=== PATIENT | female | born 1930 | race Caucasian/White ===

== ENCOUNTER 2017-10-11 08:57 | Inpatient (IN) | payer MEDICARE, OTHER ==
[2017-10-11 09:51] LABS: #Eosinphils 0.4 thou/uL (0.0-0.7); #Lymphocytes 1.4 thou/uL (1.20-3.40); #Monocytes 0.6 thou/uL (0.11-0.59); %Basophils 0.3 % (0.0-1.0); %Eosinophils 4.6 % (0.0-10.0); %Lymphocytes 14.8 % (21.0-51.0); %Monocytes 6.4 % (0.0-10.0); %Neutrophils 73.8 % (42.0-75.0); Hemoglobin 7.5 g/dL (12.0-16.0); Mean Corpuscular HGB CONC 29.5 g/dL (32.0-36.0); Mean Corpuscular Hemoglobin 20.1 pg (27.0-31.0); Mean Corpuscular Volume 68.2 fl (81.0-99.0); Mean Platelet Volume 7.6 fL (7.4-10.4); Platelet Count 383 thou/uL (130-400); RBC Distribution Width 15.1 % (11.5-14.5); Red Blood Cell (RBC) Count 3.73 mill/uL (4.20-5.40); White Blood Cell (WBC) Count 9.5 thou/uL (4.8-10.8)
[2017-10-11 09:58] LABS: ALT (SGPT) 16 U/L (8-55); AST (SGOT) 17 U/L (5-34); Albumin 3.8 g/dL (3.4-4.8); Alkaline Phosphatase 71 U/L (40-150); Anion Gap 9 mmol/L (10-20); BUN (Urea Nitrogen) 21 mg/dL (9.8-20.1); Bilirubin, Total 0.3 mg/dL (0.2-1.2); Calc. Creatinine Clearance 0 mL/min (70-130); Calcium 9.2 mg/dL (7.8-10.44); Carbon Dioxide 26 mmol/L (23-31); Chloride 107 mmol/L (98-107); Estimated GFR-MDRD 67; Globulin 2.8 g/dL (2.4-3.5); Glucose 134 mg/dL (83-110); Potassium 3.7 mmol/L (3.5-5.1); Protein, Total 6.6 g/dL (6.0-8.3); Sodium 138 mmol/L (136-145)
[2017-10-11 10:08] LABS: Anisocytosis SLIGHT = 6-15 cells (100X) (0-5/hpf); Burr Cells SLIGHT = 2-5 cells (100X) (0-1/hpf); Elliptocytes SLIGHT = 2-5 cells (100X) (0-1/hpf); PLT Morphology Comment Appears Adequate; Polychromasia SLIGHT = 2-3 cells (100X) (0-2/hpf)
[2017-10-11 10:13] LABS: CKMB 3.2 ng/mL (0-6.6); Troponin I Less than 0.010 ng/mL (< 0.028)
[2017-10-11 10:15] LABS: INR-International Normal Ratio 1.1; PTT 25.9 SEC (22.9-36.1); Prothrombin Time 14.1 SEC (12.0-14.7)
[2017-10-11] MEDS ORDERED: Morphine 4 MG/ML VIAL ONE ×2 (10:19→13:30)
[2017-10-11 11:06] LABS: Bilirubin Negative (Negative); Blood, Urine Negative (Negative); Glucose, Urine (Dipstick) Negative (Negative); Leukocyte Negative (Negative); Nitrite Negative (Negative); Protein, Urine (Dipstick) Negative (Neg-Trace); Urobilinogen 0.2 mg/dL (0.2-1.0)
[2017-10-11 11:07] LABS: Clarity Clear (Clear)
--- NOTE | 2017-10-11 11:47 | RAD ---
CHEST 1 VIEW: HISTORY: Fall. COMPARISON: Chest radiograph 01/12/17. FINDINGS: There is a focal area of what appears to be scarring in the right upper lobe, similar to the comparis on examination. Old right-sided rib fractures. Lungs are without focal airspace consolidation, pneu mothorax, or effusion. IMPRESSION: Chronic changes. No acute intrathoracic abnormality. POS: [facility]
--- NOTE | 2017-10-11 12:05 | RAD ---
PELVIS 1 VIEW: History Fall. COMPARISON: Pelvis radiograph 2017. FINDINGS: Intertrochanteric fracture of the right femur with mild varus angulation and foreshortening. Degenerative changes are noted of the pubic symphysis. The obturator rings appear to be intact. IMPRESSION: Intertrochanteric fracture of the right femur. Mild foreshortening and varus angulation. POS: [facility]
--- NOTE | 2017-10-11 12:06 | RAD ---
RIGHT FEMUR 2 VIEWS: HISTORY: Fall. COMPARISON: Same day. FINDINGS: There is foreshortening of the intertrochanteric fracture of the right femur with varus angulation an d medial displacement. IMPRESSION: Foreshortened and medially displaced varus angulated intertrochanteric fracture right femur. POS: [facility]
--- NOTE | 2017-10-11 12:07 | CT ---
CT OF THE HEAD NONCONTRAST: INDICATION: Fall with head injury. FINDINGS: There is no ventriculomegaly, mass effect, midline shift, or acute intracranial hemorrhage. There is moderate global atrophy related to patient's age. Moderate chronic microvascular ischemic disease i s present. IMPRESSION: 1. No acute intracranial hemorrhage or mass effect. 2. Age-related parenchymal volume loss and chronic ischemic disease. POS: [facility]
--- NOTE | 2017-10-11 12:09 | RAD ---
RIGHT HIP 2 VIEWS: HISTORY: Fall. COMPARISON: Hip radiograph 2013. FINDINGS: Intertrochanteric fracture right femur with foreshortening and varus angulation. IMPRESSION: Foreshortened varus angulated impacted intertrochanteric fracture right femur. POS: [facility]
--- NOTE | 2017-10-11 12:12 | CT ---
CT CERVICAL SPINE WITHOUT CONTRAST: HISTORY: Fall. COMPARISON: CT cervical spine 01/13/17. FINDINGS: No acute fracture or malalignment. Moderate degenerative changes throughout the cervical spine inclu ding facet arthrosis and degenerative disk space narrowing. Skull base is intact. The odontoid process is intact as well as the occipital condyles. There is intralobular septal thickening of the lung apices. Paraspinal soft tissues appear unremarka ble. IMPRESSION: No acute fracture or malalignment of cervical spine. POS: [facility]
[2017-10-11] MEDS ORDERED: Dextrose 50% Abboject 50 ML SYRINGE SLOW IVP PRN (12:23)
[2017-10-11] MEDS ORDERED: hydrALAZINE 20 MG/ML VIAL SLOW IVP PRN (12:23)
[2017-10-11] MEDS ORDERED: Dextrose 5% in Water 1,000 ML IV PRN (12:23)
[2017-10-11] MEDS ORDERED: Ondansetron HCl/PF 4 MG/2 ML Vial IVP PRN (12:23)
[2017-10-11] MEDS ORDERED: Ondansetron ODT 4 MG TAB PO PRN (12:23)
[2017-10-11] MEDS ORDERED: Morphine 4 MG/ML VIAL SLOW IVP PRN (12:38)
[2017-10-11 13:15] LABS: Phosphorus 3.3 mg/dL (2.3-4.7)
--- NOTE | 2017-10-11 13:38 | HP ---
DATE OF ADMISSION: 10/11/2017 ADMITTING PHYSICIAN: Dr. Shoemaker. CONSULTING PHYSICIAN: Dr. Harrison. CHIEF COMPLAINT: Right hip fracture. HISTORY OF PRESENT ILLNESS: Mrs. De Jesus is a resident of [facility] who had an unwitnesse d fall today. The patient is unable to recall any details of the accident, so details have been obta ined for record review. Per ER records, fall was from ground level. Unclear if loss of consciousnes s. She was brought to the [place] ED by EMS where she was evaluated and found to have a right int ertrochanteric femur fracture with foreshortening and varus angulation. She had a negative head CT. Her cervical spine CT was negative. Dr. Harrison in Orthopedic Surgery was consulted and Trauma Serv ice was asked to admit. PAST MEDICAL HISTORY: Per chart review, the patient has a past medical history significant for intra cranial hemorrhage in 2017. Patient also has a history of dementia, history of previous falls and ob structive sleep apnea. The patient reports she is not on CPAP at home. Records reviewed also reveal ed the patient has history of glaucoma, Meniere's disease, hypertension, and asthma. PAST SURGICAL HISTORY: Per records review, patient has history of appendectomy, hysterectomy, and le ft mastectomy. SOCIAL HISTORY: The patient lives at [facility]. This was obtained by records review. The patient does not recall where she lives. She denies smoking, drugs or alcohol use. FAMILY HISTORY: Patient is unable to report family history. ALLERGIES: Per records review, patient has a history of IODINE allergy. REVIEW OF SYSTEMS: A 10 point review of systems was obtained at bedside and was negative except as m entioned in the HPI. PHYSICAL EXAMINATION: VITAL SIGNS: BP 156/69, heart rate 87, respirations 16, O2 sats 97% on 2 liters. GENERAL APPEARANCE: Patient is an elderly obese adult female. She does appear to be in moderate trinity unt of distress. HEENT: She is normocephalic and atraumatic. Eyes, PERRLA, EOMI. Ears atraumatic. Nose: Nares pat ent. Mouth: Oropharynx is pink and moist. She is edentulous. NECK: Trachea is midline. She has no cervical spine tenderness. RESPIRATORY: Breath sounds are clear to auscultation bilaterally with normal effort. CARDIOVASCULAR: She has a mostly regular rate and rhythm. She does have occasional premature beats. Her distal pulses are 2+ bilaterally. ABDOMEN: Soft, obese, nontender throughout. She has positive bowel sounds. EXTREMITIES: She is neurovascularly intact x4. EXTREMITIES: Her right leg is externally rotated and foreshortened. She has no contusion or ecchymo sis over her right hip. She has several scars from previous surgeries, one in her right lower quadra nt, another on her upper left chest and another on her anterior right shoulder. LABORATORY DATA: Hematology significant for hemoglobin of 7.5, hematocrit 25.4. Chemistry significa nt for potassium 3.7, BUN 21 and creatinine 0.81. Cardiac profile; CK-MB 3.2, troponin less than 0.0 10. Coag panel: PT 14.1, INR 1.1, and PTT 25.9. Urinalysis negative for UTI. Fecal occult blood n egative. IMAGING DATA: 1. CT cervical spine without contrast: A. No acute fracture or malalignment of cervical spine. 2. X-ray right hip: A. Foreshortened varus angulated impacted intertrochanteric fracture of the right femur. 3. X-ray of the femur, right two view: A. Foreshortened and medially displaced varus angulated intertrochanteric fracture of the right femu r. 5. X-ray of the pelvis: A. Intertrochanteric fracture of the right femur. Allow for shortening and varus angulation. 6. Chest x-ray: A. Chronic changes. No acute intrathoracic abnormality. 7. CT of the brain without contrast: A. No acute intracranial hemorrhage or mass effect. B. Age related parenchymal volume loss and chronic ischemic disease. ASSESSMENT AND PLAN: 1. Displaced right intertrochanteric femur fracture. 2. Fall from ground level, unwitnessed. 3. Acute traumatic pain. 4. Anemia, hemoglobin 7.5. 5. History of dementia, present on admission. 6. History of asthma, present on admission. 7. History of glaucoma, present on admission. 8. History of Meniere's disease, present on admission. 9. History of hypertension, present on admission. PLAN: 1. Admit to the surgical floor. 2. N.p.o. after midnight for planned hip surgery in the morning. Patient on schedule for 8:[address] Harrison. 3. Pain control optimization. The patient will be put on p.o. Tylenol until tonight when she will b e switched off her medications, 50 mg of Toradol q.6 hours. Morphine for breakthrough severe pain. 4. Transfuse 2 units packed red blood cells today. 5. Patient will need a rehab screen, PT and OT postoperatively for mobilization. 6. We will initiate gastritis and mechanical deep venous thrombosis prophylaxis. We will begin chem ical DVT prophylaxis when okay per orthopedic recommendations. This patient was seen in the ER and discussed with Dr. Shoemaker who agrees with the assessment and az n.
[2017-10-11] MEDS: Acetaminophen 500 MG TAB PO SCH ×2 (18:04)
[2017-10-11] MEDS: Ketorolac Tromethamine 30 MG/ML VIAL IVP SCH (18:05)
[2017-10-11] MEDS: Morphine 4 MG/ML VIAL SLOW IVP PRN (18:55)
[2017-10-11] MEDS: Famotidine/PF 20 mg/2ml Vial SLOW IVP SCH (21:28)
[2017-10-11] MEDS: Famotidine 20 MG TAB PO SCH (22:47)
[2017-10-12] MEDS: Acetaminophen 500 MG TAB PO SCH (01:07)
[2017-10-12] MEDS: Acetaminophen 1,000 MG in Premix Bag 1 BAG IVPB SCH ×3 (01:08→12:46)
[2017-10-12] MEDS: Ketorolac Tromethamine 30 MG/ML VIAL IVP SCH ×2 (01:08→05:27)
[2017-10-12] MEDS: Morphine 4 MG/ML VIAL SLOW IVP PRN ×2 (02:12→06:01)
[2017-10-12] MEDS: Sodium Chloride 0.9% 1,000 ML IV SCH ×2 (02:24→15:42)
[2017-10-12 05:52] LABS: #Eosinphils 0.2 thou/uL (0.0-0.7); #Lymphocytes 1.3 thou/uL (1.20-3.40); #Neutrophils 6.8 thou/uL (1.40-6.50); %Basophils 0.4 % (0.0-1.0); %Eosinophils 2.3 % (0.0-10.0); %Lymphocytes 13.9 % (21.0-51.0); %Neutrophils 72.5 % (42.0-75.0); Hemoglobin 8.9 g/dL (12.0-16.0); Mean Corpuscular HGB CONC 31.2 g/dL (32.0-36.0); Mean Corpuscular Hemoglobin 22.9 pg (27.0-31.0); Mean Corpuscular Volume 73.4 fl (81.0-99.0); Mean Platelet Volume 7.8 fL (7.4-10.4); Platelet Count 303 thou/uL (130-400); RBC Distribution Width 17.7 % (11.5-14.5); Red Blood Cell (RBC) Count 3.89 mill/uL (4.20-5.40); White Blood Cell (WBC) Count 9.3 thou/uL (4.8-10.8)
[2017-10-12 06:15] LABS: Anion Gap 8 mmol/L (10-20); BUN (Urea Nitrogen) 22 mg/dL (9.8-20.1); Calc. Creatinine Clearance 0 mL/min (70-130); Calcium 9.3 mg/dL (7.8-10.44); Carbon Dioxide 28 mmol/L (23-31); Chloride 107 mmol/L (98-107); Estimated GFR-MDRD 80; Glucose 111 mg/dL (83-110); Sodium 140 mmol/L (136-145)
[2017-10-12 07:02] LABS: Magnesium 1.9 mg/dL (1.6-2.6)
[2017-10-12] MEDS ORDERED: Neomycin-Polymyxin 1 ML AMP ONE (07:22)
[2017-10-12] MEDS ORDERED: ADMIXTURE FEE IVPB SCH (07:30)
[2017-10-12] MEDS ORDERED: MAGNESIUM SULFATE IVPB SCH (07:30)
[2017-10-12] MEDS ORDERED: POTASSIUM CHLORIDE IVPB SCH (07:30)
[2017-10-12] MEDS ORDERED: [UNRECOGNIZED DRUG - OTHER] IVPB SCH (07:30)
--- NOTE | 2017-10-12 07:41 | PRG ---
DATE OF SERVICE: 10/12/2017 SUBJECTIVE: Ms. De Jesus is very confused and has no recollection of conversations yesterday in regards to her hip. Please see Trino Salgado PA-C, H&P for dull details. Patient has intertrochanteric fracture. Dr. Harrison to perform ORIF today followed by rehabilitation . She is hemodynamically stable and ready for surgery.
[2017-10-12] MEDS ORDERED: CEFAZOLIN/Water 2 GM/20 ML SYRINGE ONE (08:06)
--- NOTE | 2017-10-12 09:06 | CON ---
DATE OF CONSULTATION: 10/11/2017 HISTORY OF PRESENT ILLNESS: Ms. De Jesus is an 86-year-old female who lives at [facility]. She had an unwitnessed fall on the date of admission. The patient has dementia and was unable to gi ve much history. She was brought to the emergency room and x-rays revealed a severely comminuted int ertrochanteric fracture of the right hip. The patient had a CT scan of her head, which was negative. CT scan of cervical spine was negative. PAST MEDICAL HISTORY: Dementia, sleep apnea, glaucoma, Meniere's disease, hypertension, and asthma. PAST SURGICAL HISTORY: Appendectomy, hysterectomy, and left mastectomy. ALLERGIES: IODINE. PHYSICAL EXAMINATION: GENERAL: Patient is a pleasant female. She is cooperative with the examination. HEENT: Unremarkable for age. Cranial nerves II-XII are grossly intact. NECK: Has mildly limited range of motion without pain. Thoracic and lumbar spine are nontender to p alpation. LUNGS: Clear bilaterally. HEART: Regular rate and rhythm. ABDOMEN: Soft, nontender, bowel sounds positive. GENITOURINARY: Not done. EXTREMITIES: The patient is able to move both upper extremities and the left lower extremity without pain. No attempts were made at movement of the right lower extremity. It is shortened and external ly rotated. The patient has good peripheral pulses. She is able to flex and extend the right ankle and her toes well. Has good sensation. IMAGING: X-rays of the right hip shows a severely comminuted intertrochanteric fracture of the right hip. No significant arthritic changes in the hip joint. LABORATORY DATA: Shows hemoglobin 7.5, hematocrit 25.4. IMPRESSION: 1. Severely comminuted right intertrochanteric fracture of the right femur. 2. Anemia. 3. History of dementia. 4. Asthma. 5. Glaucoma. 6. Meniere's disease. 7. Hypertension. PLAN: The patient will be given 2 units of packed red blood cells. She will be checked out medicall y. The right proximal femur will require open reduction and internal fixation. Planned on using a t rochanteric fixation nail. Potential risks with the condition of surgery include but are not limited to infection, bleeding, pain, damage to blood vessels or nerves, nonunion, malunion. The patient ma y require additional surgery, DVT and PE formation. We will proceed with the surgery tomorrow.
[2017-10-12] MEDS ORDERED: Ondansetron HCl/PF 4 MG/2 ML Vial IVP PRN ×2 (09:17→09:45)
[2017-10-12] MEDS ORDERED: Promethazine HCl 25 MG/ML VIAL IM PRN (09:17)
[2017-10-12] MEDS ORDERED: Promethazine HCl 25 MG/ML VIAL SLOW IVP PRN (09:17)
[2017-10-12] MEDS ORDERED: Acetaminophen 500 MG TAB PO PRN (09:44)
[2017-10-12] MEDS ORDERED: Bisacodyl 10 MG SUPP PR PRN (09:45)
[2017-10-12] MEDS ORDERED: Ondansetron ODT 4 MG TAB PO PRN (09:45)
[2017-10-12] MEDS ORDERED: Fleet Enema 133 ML BOT PR PRN (09:45)
[2017-10-12] MEDS ORDERED: Cepastat Lozenges 1 LOZ PO PRN (09:45)
[2017-10-12] MEDS ORDERED: Milk Of Magnesia 30 ML UDCUP PO PRN (09:45)
--- NOTE | 2017-10-12 10:06 | OP ---
DATE OF PROCEDURE: 10/12/2017 PREOPERATIVE DIAGNOSIS: Comminuted intertrochanteric fracture of the right hip. POSTOPERATIVE DIAGNOSIS: Comminuted intertrochanteric fracture of the right hip. PROCEDURE: Open reduction and internal fixation of comminuted intertrochanteric fracture of the righ t hip utilizing a trochanteric fixation nail. SURGEON: Yuriy Harrison M.D. ANESTHESIA: General. TECHNIQUE: The patient was given preoperative IV antibiotics, taken to the operating room and placed in supine position. Satisfactory general anesthesia was performed. The patient was then placed on the fracture table. All bony prominences were well padded, and the right lower extremity was placed in traction through a well-padded boot over the foot and ankle. C-arm was used to verify good alignm ent of the comminuted fractures. The lateral aspect of the right hip and thigh was sterilely prepped and draped in usual fashion. A 2.5 inch incision was made just proximal to the greater trochanter a nd under fluoroscopic visualization a guidewire was placed through the greater trochanter. Then was over reamed and a [employer] 11 mm trochanteric fixation nail which was 170 mm in length was inserted in to the proximal femur to the appropriate depth and using the guide still attached to the nail and thr ough a 2 inch incision in the mid lateral thigh, guide pin was placed up through the inferior portion of the femoral neck and into the head. All this was again confirmed with C-arm. The lateral cortex was reamed and the screw was measured. The helical blade that measured 100 mm in length was inserte d through the shaft and into the femoral head and neck and then it was locked down in place. A 5.0 l ocking screw was placed distally through the femur and through the distal aspect of the nuzhat. This al lowed for good stability of the fractures and good alignment. The guide was then removed from the ro d and both wounds were then copiously irrigated with antibiotic solution. They were closed using #2 Vicryl for the iliotibial band, 0 Vicryl for the subcutaneous tissue, and skin was closed with skin s taples. Sterile dressing was applied. The patient was taken out of traction off of the fracture tab le onto a regular bed. She was awakened, extubated, and transferred to recovery room in stable condi tion. ESTIMATED BLOOD LOSS: 50 mL. COMPLICATIONS: None.
[2017-10-12] MEDS: Famotidine 20 MG TAB PO SCH ×2 (10:55→22:21)
--- NOTE | 2017-10-12 11:10 | RAD ---
RIGHT HIP 2 VIEWS: HISTORY: Fracture. FINDINGS: Satisfactory appearance of the intramedullary nail proximal femur. IMPRESSION: Satisfactory appearance of the intramedullary nail. POS: [facility]
[2017-10-12] MEDS ORDERED: Ketorolac Tromethamine 30 MG/ML VIAL IM SCH (12:00)
--- NOTE | 2017-10-12 13:31 | PRG ---
DATE OF SERVICE: 10/12/2017 ATTENDING PHYSICIAN: Dr. Shoemaker. SUBJECTIVE: Mrs. De Jesus is a resident of [facility] who had an unwitnessed fall yesterday and was brought to the [place] ED where she was found to have a right hip fracture. She went to the OR this morning with Dr. Harrison. She has not seen on the surgical floor, postop day 0. The pat ient reports being somewhat sleepy, but says her pain is well controlled. OBJECTIVE: VITAL SIGNS: BP 129/93, pulse 71, temperature 98.1, respirations 18, and O2 sat 96% on 2 liters. GENERAL APPEARANCE: The patient is an elderly female resting comfortably in bed. She is in no acute distress. HEENT: Normocephalic, atraumatic. RESPIRATORY: Breath sounds are clear to auscultation bilaterally with normal effort. CARDIOVASCULAR: She has regular rate and rhythm. No murmurs, gallops or rubs. ABDOMEN: Soft and nontender. She has hypoactive bowel sounds. EXTREMITIES: She is neurovascularly intact x4. She has a dressing in place over her right greater t rochanter. This appears clean and dry. LABORATORY DATA: Hematology: WBC 9.3, hemoglobin 8.9, hematocrit 28.6, and platelets 303. Chemistr y: Sodium 140, potassium 3.0, chloride 107, bicarbonate 28, BUN 22, creatinine 0.70, glucose 111, ca lcium 9.3, phosphorus 3.0 and magnesium 1.9. IMAGING: There are no images to review today. ASSESSMENT: 1. Status post ground level fall. 2. Right intertrochanteric femur fracture status post open reduction and internal fixation, postop d ay 0. 3. Acute traumatic pain. 4. Anemia. 5. Acute hypokalemia. 6. Acute hypomagnesemia. 7. History of dementia, present on admission. 8. History of asthma, present on admission. 9. History of glaucoma, present on admission. 10. History of Meniere's disease, present on admission. 11. History of hypertension, present on admission. PLAN: 1. We will switch pain medication to Tylenol, ibuprofen and tramadol and see if she tolerates this. 2. PT and OT to evaluate today. 3. Incentive spirometry and pulmonary toilet. 4. Gastritis prophylaxis. 5. Chemical DVT prophylaxis when appropriate. 6. We will continue to trend hemoglobin and hematocrit and transfuse for hemoglobin hematocrit less than 7 and 21. 7. Replete electrolytes this morning with 40 of potassium chloride and 2 grams of IV magnesium. This patient was seen and examined along with Dr. Shoemaker and discussed over phone with Dr. Yoan escobedo, who agrees with the assessment and plan.
[2017-10-12] MEDS ORDERED: Propofol 200 MG/20 ML VIAL ONE (15:08)
[2017-10-12] MEDS ORDERED: ePHEDrine/0.9% NaCl/PF SYRINGE 50 mg/10 ml ONE (15:08)
[2017-10-12] MEDS ORDERED: Lidocaine 1% PF 5 ML VIAL ONE (15:08)
[2017-10-12] MEDS: Famotidine/PF 20 mg/2ml Vial SLOW IVP SCH (15:43)
[2017-10-12] MEDS ORDERED: diphenhydrAMINE 25 MG CAP PO PRN (16:21)
[2017-10-12] MEDS ORDERED: traMADol HCl 50 MG TAB PO PRN (17:26)
[2017-10-12] MEDS: Ibuprofen 600 MG TAB PO SCH ×2 (18:35→22:25)
[2017-10-12] MEDS: traMADol HCl 50 MG TAB PO SCH ×2 (18:36→22:25)
[2017-10-12] MEDS ORDERED: Lorazepam 2 MG/ML VIAL SLOW IVP SCH (20:45)
[2017-10-12] MEDS ORDERED: Non-Formulary Item 1 EACH (Melatonin [Melatonin] 3 MG) PO SCH (21:00)
[2017-10-12] MEDS ORDERED: Atorvastatin Calcium 40 MG TAB PO SCH (21:00)
[2017-10-12] MEDS ORDERED: Non-Formulary Item 1 EACH (Bimatoprost [Lumigan 0.01% Ophth Soln] 1 DROP) EA EYE SCH (21:00)
[2017-10-12] MEDS ORDERED: Potassium Chloride 20 MEQ TAB PO SCH (21:00)
[2017-10-12] MEDS ORDERED: Melatonin 3 MG TAB PO SCH (21:00)
[2017-10-12] MEDS: Atorvastatin Calcium 20 MG TAB PO SCH (22:21)
[2017-10-12] MEDS: Docusate 100 MG CAP PO SCH (22:21)
[2017-10-12] MEDS: Ferrous Gluconate 324 MG TAB PO SCH (22:21)
[2017-10-12] MEDS: Latanoprost 0.005% Ophth Soln 2.5 ml Bottle EA EYE SCH (22:22)
[2017-10-12] MEDS: Senokot S 8.6-50 MG TAB PO SCH (22:22)
[2017-10-12 22:27] LABS: Anion Gap 10 mmol/L (10-20); BUN (Urea Nitrogen) 20 mg/dL (9.8-20.1); Calc. Creatinine Clearance 0 mL/min (70-130); Calcium 8.5 mg/dL (7.8-10.44); Carbon Dioxide 25 mmol/L (23-31); Chloride 108 mmol/L (98-107); Estimated GFR-MDRD 77; Glucose 120 mg/dL (83-110); Magnesium 2.2 mg/dL (1.6-2.6); Phosphorus 1.9 mg/dL (2.3-4.7); Potassium 3.2 mmol/L (3.5-5.1); Sodium 140 mmol/L (136-145)
[2017-10-12] MEDS ORDERED: Potassium Phosphate 30 MMOL in Sodium Chloride 0.9% 500 ML IVPB SCH (22:45)
[2017-10-12] MEDS ORDERED: Magnesium 2 GM/NS 0.9% 100 ML 2 GM in Premix Bag 1 BAG IVPB SCH (23:00)
[2017-10-13] MEDS: Sodium Chloride 0.9% 1,000 ML IV SCH (02:29)
[2017-10-13 05:55] LABS: Hemoglobin 7.3 g/dL (12.0-16.0); Mean Corpuscular Hemoglobin 22.8 pg (27.0-31.0); Mean Corpuscular Volume 73.7 fl (81.0-99.0); Mean Platelet Volume 7.7 fL (7.4-10.4); Platelet Count 257 thou/uL (130-400); RBC Distribution Width 18.2 % (11.5-14.5)
[2017-10-13] MEDS: Ibuprofen 600 MG TAB PO SCH ×4 (06:29→23:49)
[2017-10-13] MEDS: traMADol HCl 50 MG TAB PO SCH ×4 (06:29→23:49)
[2017-10-13 06:32] LABS: Anion Gap 8 mmol/L (10-20); BUN (Urea Nitrogen) 17 mg/dL (9.8-20.1); Calc. Creatinine Clearance 0 mL/min (70-130); Carbon Dioxide 27 mmol/L (23-31); Chloride 109 mmol/L (98-107); Estimated GFR-MDRD 85; Glucose 111 mg/dL (83-110); Potassium 3.9 mmol/L (3.5-5.1); Sodium 140 mmol/L (136-145)
[2017-10-13 07:09] LABS: Calcium 8.7 mg/dL (7.8-10.44)
[2017-10-13 08:22] LABS: Magnesium 2.4 mg/dL (1.6-2.6); Phosphorus 3.2 mg/dL (2.3-4.7)
[2017-10-13] MEDS: Docusate 100 MG CAP PO SCH ×2 (08:44→21:33)
[2017-10-13] MEDS: Bisacodyl 10 MG SUPP PR SCH (08:44)
[2017-10-13] MEDS: Senokot S 8.6-50 MG TAB PO SCH ×2 (08:44→21:33)
[2017-10-13] MEDS: Acetaminophen 500 MG TAB PO SCH ×3 (08:45→21:31)
[2017-10-13] MEDS: Ferrous Gluconate 324 MG TAB PO SCH ×2 (08:45→21:33)
[2017-10-13] MEDS: Escitalopram Oxalate 20 mg Tablet PO SCH (08:45)
[2017-10-13] MEDS: Nisoldipine 8.5 MG TAB PO SCH (08:46)
[2017-10-13] MEDS: Multivitamin W/ Minerals 1 TAB PO SCH (08:46)
[2017-10-13] MEDS ORDERED: Potassium Chloride 20 MEQ TAB PO SCH (09:00)
[2017-10-13] MEDS ORDERED: NISOLDIPINE 17 MG PO SCH (09:00)
--- NOTE | 2017-10-13 11:21 | PRG ---
DATE OF SERVICE: 10/13/2017 SUBJECTIVE: Ms. De Jesus is one day status post ORIF of a comminuted intertrochanteric fracture of the right hip using a trochanteric fixation nail. The patient is more alert this morning. She is conver sive, able to participate. PHYSICAL EXAMINATION: VITAL SIGNS: The patient is afebrile, pulse 85, respiratory rate 16, blood pressure 171/80, O2 satur ation is 98% on 3 liters nasal cannula. LABORATORY DATA: CBC this morning, white count 8.0, hemoglobin 7.3, and hematocrit 23.6. PLAN: The patient will be evaluated and treated by physical and occupational therapy. I discussed t he case with Dr. Dunbar who is going to consult GI to check into chronic anemia. She is anemic now, b ut she tolerated very well with her blood pressure. We will hold off on giving blood at this point. We will try to advance her activities as patient is able to tolerate.
[2017-10-13 12:39] VITALS: BMI 33.2
--- NOTE | 2017-10-13 13:38 | PRG-2 ---
DATE OF SERVICE: 10/13/2017 ATTENDING PHYSICIAN: Yoan Dunbar DO. SUBJECTIVE: Ms. De Jesus is a resident of [facility], who had an unwitnessed fall on and was brought to the ED where she was found to have a right intertrochanteric femur fractur e. The patient is postop day #1 status post open reduction and internal fixation with Dr. Harrison. The patient reports her pain is controlled. She is wheelchair bound at baseline. She worked with [employer] to get to the edge of the bed. She did become agitated postop and so she had her elec trolytes checked, which her magnesium and potassium were replaced and her Belcher was discontinued. Th e patient has no signs or symptoms of infection. OBJECTIVE: VITAL SIGNS: Temperature 99.3, pulse 83, respiratory rate 18, O2 sat 93% on 2 liters and blood press ure 110/54. GENERAL: An elderly female lying in bed, well-nourished, in no acute distress. HEENT: Normocephalic and atraumatic. Moist mucous membranes. RESPIRATORY: No use of accessory muscles of respiration. Clear to auscultation bilaterally. CARDIOVASCULAR: Regular rate and rhythm. No murmurs, gallops or rubs. ABDOMEN: Normoactive bowel sounds. Soft, nontender and nondistended. EXTREMITIES: Neurovascularly intact in all [address] over the right hip is c lean, dry and intact. NEUROLOGIC: Awake, alert and oriented x3. No focal deficits. LABORATORY DATA: WBC 8.0; hemoglobin 7.3, it was 8.9 yesterday; hematocrit 23.6; platelet count 257 and MCV 73.7. Sodium 140, potassium 3.9, chloride 109, CO2 of 27, calcium 8.7, phosphorus 3.2, magne sium 2.4, creatinine 0.66 and BUN 17. ASSESSMENT: 1. Status post ground level fall. 2. Right intertrochanteric femur fracture, status post open reduction and internal fixation, postope rative day #1. 3. Acute traumatic pain. 4. Iron deficiency anemia. 5. History of dementia, present on admission. 6. History of asthma, present on admission. 7. History of glaucoma, present on admission. 8. History of Meniere disease, present on admission. 9. History of hypertension, present on admission. PLAN: 1. Pain control with tramadol, ibuprofen and Tylenol. We will schedule the Tylenol instead of p.r.n . 2. Continue to work with PT and OT. 3. Incentive spirometry. 4. Gastritis prophylaxis. 5. We will start Lovenox for DVT prophylaxis. 6. We will consult GI to consider workup for GI malignancy as a cause for iron deficiency anemia. T he patient does not remember when her last colonoscopy was and it was at least greater than 5 years a go. The patient has no other cause for her iron deficiency. 7. Vitamin C and iron. 8. Plan for discharge to a assisted facility when approved by insurance. Dr. Dunbar saw and examined the patient and also formulated the plan with me.
[2017-10-13] MEDS: Ascorbic Acid 500 mg Chewable Tablet PO SCH (16:56)
[2017-10-13] MEDS ORDERED: Enoxaparin Sodium 30 MG/0.3 ML SYRINGE SC SCH (21:00)
[2017-10-13] MEDS: Atorvastatin Calcium 20 MG TAB PO SCH (21:33)
[2017-10-13] MEDS: Latanoprost 0.005% Ophth Soln 2.5 ml Bottle EA EYE SCH (21:33)
--- NOTE | 2017-10-13 22:07 | EKG ---
Test Reason : STAT Blood Pressure : / mmHG Vent. Rate : 102 BPM Atrial Rate : 102 BPM P-R Int : 000 ms QRS Dur : 092 ms QT Int : 392 ms P-R-T Axes : 000 021 070 degrees QTc Int : 510 ms Normal sinus rhythm Premature atrial complexes Premature ventricular complexes Nonspecific ST and T wave abnormality Abnormal ECG Confirmed by JUSTEN STONE M.D. ([id number]) on 10/13/2017 10:07:35 PM Referred By: CLAUDIO Confirmed By:JUSTEN STONE M.D.
[2017-10-14] MEDS: Acetaminophen 500 MG TAB PO SCH ×2 (03:27→08:20)
[2017-10-14] MEDS: traMADol HCl 50 MG TAB PO SCH ×3 (03:44→12:43)
[2017-10-14] MEDS: Ibuprofen 600 MG TAB PO SCH ×2 (05:25→12:43)
[2017-10-14 05:44] LABS: Hemoglobin 7.4 g/dL (12.0-16.0); Mean Corpuscular HGB CONC 31.2 g/dL (32.0-36.0); Mean Corpuscular Hemoglobin 22.7 pg (27.0-31.0); Mean Corpuscular Volume 72.7 fl (81.0-99.0); Platelet Count 254 thou/uL (130-400); RBC Distribution Width 18.8 % (11.5-14.5); Red Blood Cell (RBC) Count 3.25 mill/uL (4.20-5.40); White Blood Cell (WBC) Count 20.9 thou/uL (4.8-10.8)
[2017-10-14 06:12] LABS: Anion Gap 10 mmol/L (10-20); BUN (Urea Nitrogen) 20 mg/dL (9.8-20.1); Calc. Creatinine Clearance 76 mL/min (70-130); Calcium 8.9 mg/dL (7.8-10.44); Carbon Dioxide 24 mmol/L (23-31); Chloride 107 mmol/L (98-107); Estimated GFR-MDRD 73; Glucose 114 mg/dL (83-110); Potassium 4.1 mmol/L (3.5-5.1); Sodium 137 mmol/L (136-145)
[2017-10-14] MEDS: Ascorbic Acid 500 mg Chewable Tablet PO SCH (08:20)
[2017-10-14] MEDS: Docusate 100 MG CAP PO SCH (08:21)
[2017-10-14] MEDS: Bisacodyl 10 MG SUPP PR SCH (08:21)
[2017-10-14] MEDS: Escitalopram Oxalate 20 mg Tablet PO SCH (08:21)
[2017-10-14] MEDS: Ferrous Gluconate 324 MG TAB PO SCH (08:21)
[2017-10-14] MEDS: Multivitamin W/ Minerals 1 TAB PO SCH (08:22)
[2017-10-14] MEDS: Nisoldipine 8.5 MG TAB PO SCH (08:22)
[2017-10-14] MEDS: Senokot S 8.6-50 MG TAB PO SCH (08:22)
[2017-10-14 08:29] VITALS: BP 123/68; TEMP 98.1
[2017-10-14 09:12] LABS: White Blood Cell (WBC) Count 21.3 thou/uL (4.8-10.8)
[2017-10-14] MEDS ORDERED: HYDROcodone/Acetaminophen 5/325 mg Tablet PO PRN ×2 (09:55→10:12)
--- NOTE | 2017-10-14 10:14 | CON ---
DATE OF CONSULTATION: 10/13/2017 REASON FOR CONSULTATION: Anemia. HISTORY OF PRESENT ILLNESS: Ms. Melly De Jesus is a very pleasant 86-year-old female, hospital ized 2 days ago with a fractured right hip. The patient had been seen by Dr. Harrison and underwent s urgery yesterday. The patient has history of dementia and not a good historian. She also admits hav ing hearing loss and somewhat difficult to get any proper history from the patient. The patient was found to have anemia on admission. The anemia is microcytic. On 10/11/2017, her CBC showed WBC of 9 500, hemoglobin 7.5, hematocrit 25.4. The MCV is 68.2 suggestive of chronic iron deficiency anemia. Today, the CBC showed WBC 8000, hemoglobin 7.3, hematocrit 23.6, MCV 73.7. Her platelet count is 25 7,000. The patient denies any GI symptoms. Denies any dysphagia. No history of abdominal pain, no nausea, no vomiting. No history of hematemesis or melena. She cannot tell me, who is her primary ca re doctor is. She does not even know when she saw her primary care doctor. Apparently, she lives in an assisted nursing facility at [place]. The patient has no immediate family members available. There is nobody in the room. 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 Most of the history was obtained by going over the admitting history and physical. The patient also had negative CAT scan of the head and spine on admission. ALLERGIES: IODINE. MEDICAL ILLNESSES: 1. Dementia. 2. Leukopenia. 3. Glaucoma. 4. Meniere's disease. 5. Hypertension. 6. Asthma. SURGERIES: Include: 1. Appendectomy. 2. Hysterectomy. 3. Left mastectomy. FAMILY HISTORY: Not obtainable. REVIEW OF SYSTEMS: Not obtainable. PHYSICAL EXAMINATION: GENERAL: The patient is a very pleasant, elderly female who appears very comfortable. She is awake, alert, and communicative. However, she is not a good historian and does have history of dementia. VITAL SIGNS: Temperature 99.3 degrees Fahrenheit, pulse is 84, blood pressure is 110/54. HEENT: Conjunctivae clear. NECK: Supple. No adenitis or thyromegaly noted. CARDIOVASCULAR SYSTEM: First and second heart sounds normal. LUNGS: Clear to auscultation. ABDOMEN: Soft to palpate. Abdomen is nontender. There is no organomegaly, no masses. EXTREMITIES: Reveal no edema. LABORATORY DATA: Again, shows a microcytic anemia. Her chemistry panel shows sodium 140, potassium 3.9, chloride 109, bicarbonate 27, BUN is 17, creatinine 0.66, glucose is 111, calcium is 8.7. Liver function tests are actually normal. CLINICAL IMPRESSION: 1. An 86-year-old female with a right hip fracture, status post surgery. She was found to have anemia, which is microcytic. very low. The patient has no specific GI symptoms: 2. Dementia. 3. Hypertension. 4. Sleep apnea. 5. Right hip fracture, status post surgery. RECOMMENDATIONS: Obtain stool for occult blood. I will make further recommendations after the stool testing is done. Because of age and microcytic anemia, I believe she probably need a colonoscopy at least to rule out any colonic pathology.
[2017-10-14] MEDS ORDERED: Sulfameth/Trimethoprim DS 800-160mg TAB PO SCH ×2 (11:30→21:00)
[2017-10-14 12:41] LABS: Bilirubin Negative (Negative); Blood, Urine Negative (Negative); Clarity CLOUDY (Clear); Glucose, Urine (Dipstick) Negative (Negative); Leukocyte Negative (Negative); Nitrite Negative (Negative); Protein, Urine (Dipstick) Negative (Neg-Trace); Specific Gravity, Urine 1.015 (1.002-1.036); Urobilinogen 0.2 mg/dL (0.2-1.0)
[2017-10-14 12:47] LABS: Bacteria/HPF None Seen HPF (None Seen); Hyaline Casts/LPF NONE SEEN LPF (0-3 Hyaline); RBC/HPF None Seen HPF (0-3); Squamous Epithelial 0-3 HPF (0-3)
--- NOTE | 2017-10-15 04:07 | DIS ---
DATE OF ADMISSION: 10/11/2017 DATE OF DISCHARGE: 10/14/2017 ADMITTING PHYSICIAN: Dr. Shoemaker. DISCHARGING PHYSICIAN: Dr. Dunbar. CONSULTING PHYSICIAN: Dr. Harrison, orthopedics. Dr. Regalado, GI. REASON FOR HOSPITALIZATION: Ground level fall, unwitnessed with hip fracture. HOSPITAL DIAGNOSES: 1. Right intertrochanteric femur fracture. 2. Anemia. PROCEDURES: ORIF, right intertrochanteric fracture. Date: 10/12/2017. Surgeon: Dr. Harrison. DISCHARGE CONDITION: Stable. DISPOSITION: [facility]. DISCHARGE MEDICATIONS: Patient may resume all prior home medications. She will also be on aspirin b.i.d. 81 mg. ACTIVITY ORDERS: Activity as tolerated. THERAPY: Continue physical and occupational therapy. DIETARY: Regular. MEDICAL FOLLOWUP: Dr. Harrison, 2 weeks; Dr. Regalado, 2 weeks. BRIEF HISTORY OF HOSPITALIZATION: Ms. De Jesus is an 86-year-old female who has a history of dementia, who had an unwitnessed fall at her retirement. She was transported to [facility], where she was found to have a right intertrochanteric hip fracture. She was admitted to the hospital by Trauma services. Dr. Harrison, orthopedics was consulted and took the patient to the OR. Due to her anemia, a GI consult was obtained. Patient was discussed at length with Dr. Regalado. She was cleared for discharge from Dr. Regalado's standpoint. She will follow as an outpatient for continued workup of anemia. She was cleared for discharge to [facility]. She was discharged on 10/14/2017. She will follow up with Dr. Harrison and Dr. Regalado. Patient was reviewed with Dr. Dunbar, who agrees with discharge plan. [facility]
== END 2017-10-14 13:15 | DRG 482 ==
LOC: ERS 08:57 → SURG A 13:49
PROVIDERS: ADMIT Surgery; ATTEND Surgery
PROC: 30233N1 Transfusion of Nonautologous Red Blood Cells into Peripheral Vein, Percutaneous Approach (ICD-10-PCS; 2017-10-11)
PROC: 0QS604Z Reposition Right Upper Femur with Internal Fixation Device, Open Approach (ICD-10-PCS; principal; 2017-10-12)
DX: S72.141A Displaced intertrochanteric fracture of right femur, initial encounter for closed fracture (principal); F03.90 Unspecified dementia, unspecified severity, without behavioral disturbance, psychotic disturbance, mood disturbance, and anxiety; E83.42 Hypomagnesemia; D50.9 Iron deficiency anemia, unspecified; G47.33 Obstructive sleep apnea (adult) (pediatric); H40.9 Unspecified glaucoma; I10 Essential (primary) hypertension; J45.909 Unspecified asthma, uncomplicated; G89.11 Acute pain due to trauma; E87.6 Hypokalemia; Z91.041 Radiographic dye allergy status; Z79.82 Long term (current) use of aspirin; Z79.899 Other long term (current) drug therapy; Y92.129 Unspecified place in nursing home as the place of occurrence of the external cause; W18.30XA Fall on same level, unspecified, initial encounter
CPT/HCPCS: 36415; 36430; 51702; 70450; 71045; 72125; 72170; 76001; 80048; 80053; 81001; 81003; 82274; 82553; 83735; 84100; 84484; 85025; 85027; 85048; 85610; 85730; 86850; 86900; 86901; 93005; 93010; 96374; 96376; C1713; G0390; G8978-GP-CM; G8979-GP-CJ; G8987-GO-CM; G8988-GO-CJ; J0131; J1650; J1885; J2001; J2060; J2270; J2704; J3475; J3480; J7050; P9016

== ENCOUNTER 2017-10-17 18:33 | Emergency (ER) | payer MEDICARE, OTHER ==
[2017-10-17 19:14] LABS: Hemoglobin 7.1 g/dL (12.0-16.0); Mean Corpuscular Hemoglobin 22.7 pg (27.0-31.0); Mean Corpuscular Volume 75.7 fl (81.0-99.0); Mean Platelet Volume 7.6 fL (7.4-10.4); Platelet Count 324 thou/uL (130-400); RBC Distribution Width 21.5 % (11.5-14.5); Red Blood Cell (RBC) Count 3.14 mill/uL (4.20-5.40); White Blood Cell (WBC) Count 11.8 thou/uL (4.8-10.8)
[2017-10-17 19:29] LABS: #Basophils 0.1 thou/uL (0.0-0.2); #Eosinphils 0.5 thou/uL (0.0-0.7); #Lymphocytes 2.2 thou/uL (1.20-3.40); #Monocytes 1.3 thou/uL (0.11-0.59); #Neutrophils 7.7 thou/uL (1.40-6.50); %Basophils 0.5 % (0.0-1.0); %Eosinophils 4.2 % (0.0-10.0); %Lymphocytes 18.9 % (21.0-51.0); %Monocytes 10.9 % (0.0-10.0); %Neutrophils 65.5 % (42.0-75.0); Anisocytosis MODERATE=16-30 cells (100X) (0-5/hpf); Burr Cells SLIGHT = 2-5 cells (100X) (0-1/hpf); Elliptocytes SLIGHT = 2-5 cells (100X) (0-1/hpf); Hypochromia SLIGHT = 6-15 cells (100X) (0-5/hpf); MDiff Complete? YES; Microcytosis SLIGHT = 6-15 cells (100X) (0-5/hpf); Ovalocytes SLIGHT = 2-5 cells (100X) (0-1/hpf); PLT Morphology Comment Appears Adequate; Polychromasia MODERATE = 3-4 cells (100X) (0-2/hpf); Target Cells SLIGHT = 2-5 cells (100X) (0-1/hpf)
== END 2017-10-17 21:12 | disposition home or self-care (01) ==
LOC: ERS 18:33
DX: D50.0 Iron deficiency anemia secondary to blood loss (chronic) (principal); K21.9 Gastro-esophageal reflux disease without esophagitis; I10 Essential (primary) hypertension; J45.909 Unspecified asthma, uncomplicated; F41.9 Anxiety disorder, unspecified; F03.90 Unspecified dementia, unspecified severity, without behavioral disturbance, psychotic disturbance, mood disturbance, and anxiety; Z79.899 Other long term (current) drug therapy; Z79.82 Long term (current) use of aspirin
CPT/HCPCS: 36415; 99285

== ENCOUNTER 2017-10-20 16:34 | Emergency (ER) | payer MEDICARE, OTHER ==
[2017-10-20 17:36] LABS: INR-International Normal Ratio 1.1; PTT 27.4 SEC (22.9-36.1); Prothrombin Time 14.5 SEC (12.0-14.7)
[2017-10-20 17:53] LABS: ALT (SGPT) 26 U/L (8-55); AST (SGOT) 26 U/L (5-34); Albumin 3.5 g/dL (3.4-4.8); Alkaline Phosphatase 83 U/L (40-150); Anion Gap 12 mmol/L (10-20); BUN (Urea Nitrogen) 17 mg/dL (9.8-20.1); Bilirubin, Total 0.6 mg/dL (0.2-1.2); Calc. Creatinine Clearance 0 mL/min (70-130); Carbon Dioxide 25 mmol/L (23-31); Chloride 104 mmol/L (98-107); Estimated GFR-MDRD 54; Globulin 2.7 g/dL (2.4-3.5); Glucose 108 mg/dL (83-110); Potassium 4.1 mmol/L (3.5-5.1); Protein, Total 6.2 g/dL (6.0-8.3); Sodium 137 mmol/L (136-145)
[2017-10-20 17:58] LABS: CKMB 5.2 ng/mL (0-6.6); Troponin I 0.011 ng/mL (< 0.028)
[2017-10-20 18:41] LABS: #Eosinphils 0.9 thou/uL (0.0-0.7); #Lymphocytes 1.8 thou/uL (1.20-3.40); #Monocytes 0.9 thou/uL (0.11-0.59); #Neutrophils 7.4 thou/uL (1.40-6.50); %Basophils 0.4 % (0.0-1.0); %Eosinophils 8.4 % (0.0-10.0); %Lymphocytes 15.9 % (21.0-51.0); %Monocytes 8.1 % (0.0-10.0); %Neutrophils 67.3 % (42.0-75.0); Hemoglobin 7.9 g/dL (12.0-16.0); Mean Corpuscular HGB CONC 30.3 g/dL (32.0-36.0); Mean Corpuscular Hemoglobin 23.5 pg (27.0-31.0); Mean Corpuscular Volume 77.6 fl (81.0-99.0); Mean Platelet Volume 7.5 fL (7.4-10.4); Platelet Count 370 thou/uL (130-400); Red Blood Cell (RBC) Count 3.37 mill/uL (4.20-5.40)
[2017-10-20 18:56] LABS: Anisocytosis MODERATE=16-30 cells (100X) (0-5/hpf); Hypochromia SLIGHT = 6-15 cells (100X) (0-5/hpf); MDiff Complete? YES; Microcytosis SLIGHT = 6-15 cells (100X) (0-5/hpf); Ovalocytes SLIGHT = 2-5 cells (100X) (0-1/hpf); PLT Morphology Comment Appears Adequate; Polychromasia MODERATE = 3-4 cells (100X) (0-2/hpf); Spherocytes SLIGHT = 1-5 cells (100X) (None Seen)
--- NOTE | 2017-10-20 19:30 | RAD ---
LEFT HIP TWO VIEWS: HISTORY: Pain. Fracture. FINDINGS: Two views of the left hip demonstrate internal fixation hardware placement. Alignment is near anatom ic. There are expected postoperative changes. A distracted fracture involving the greater trochante r is noted. IMPRESSION: Intraoperative changes. POS: PPP
== END 2017-10-20 21:00 | disposition home or self-care (01) ==
LOC: ERS 16:34
DX: D64.9 Anemia, unspecified (principal); F03.90 Unspecified dementia, unspecified severity, without behavioral disturbance, psychotic disturbance, mood disturbance, and anxiety; K21.9 Gastro-esophageal reflux disease without esophagitis; M19.90 Unspecified osteoarthritis, unspecified site; I10 Essential (primary) hypertension; J45.909 Unspecified asthma, uncomplicated; E78.5 Hyperlipidemia, unspecified; F41.9 Anxiety disorder, unspecified; H40.9 Unspecified glaucoma; Z79.82 Long term (current) use of aspirin; Z79.899 Other long term (current) drug therapy
CPT/HCPCS: 36415; 80053; 82553; 84484; 85610; 85730; 86850; 86900; 86901; 94760

== ENCOUNTER 2019-07-17 16:03 | Observation (INO) | payer MEDICARE, OTHER ==
[2019-07-17 16:35] LABS: #Eosinphils 0.4 thou/uL (0.0-0.7); #Lymphocytes 1.8 thou/uL (1.20-3.40); #Monocytes 0.7 thou/uL (0.11-0.59); #Neutrophils 4.9 thou/uL (1.40-6.50); %Basophils 0.4 % (0.0-1.0); %Eosinophils 4.5 % (0.0-10.0); %Lymphocytes 23.2 % (21.0-51.0); %Monocytes 9.4 % (0.0-10.0); %Neutrophils 62.5 % (42.0-75.0); Hemoglobin 12.4 g/dL (12.0-16.0); Mean Corpuscular HGB CONC 33.6 g/dL (32.0-36.0); Mean Corpuscular Hemoglobin 30.6 pg (27.0-31.0); Mean Corpuscular Volume 91.2 fL (78.0-98.0); Mean Platelet Volume 7.5 fL (7.4-10.4); Platelet Count 288 thou/uL (130-400); RBC Distribution Width 11.7 % (11.5-14.5); Red Blood Cell (RBC) Count 4.04 mill/uL (4.20-5.40); White Blood Cell (WBC) Count 7.8 thou/uL (4.8-10.8)
[2019-07-17 16:54] LABS: ALT (SGPT) 24 U/L (8-55); AST (SGOT) 22 U/L (5-34); Albumin 3.7 g/dL (3.4-4.8); Alkaline Phosphatase 67 U/L (40-110); Anion Gap 10 mmol/L (10-20); BUN (Urea Nitrogen) 25 mg/dL (9.8-20.1); Bilirubin, Total 0.3 mg/dL (0.2-1.2); Calc. Creatinine Clearance 0 mL/min (70-130); Calcium 9.8 mg/dL (7.8-10.44); Carbon Dioxide 31 mmol/L (23-31); Chloride 102 mmol/L (98-107); Estimated GFR-MDRD 49; Globulin 2.9 g/dL (2.4-3.5); Glucose 107 mg/dL (83-110); Potassium 3.2 mmol/L (3.5-5.1); Protein, Total 6.6 g/dL (6.0-8.3); Sodium 140 mmol/L (136-145)
--- NOTE | 2019-07-17 16:58 | RAD ---
PORTABLE CHEST: 07/17/19 HISTORY: Chest pain. COMPARISON: 10/11/18 exam. Heart size appears borderline size. There are atherosclerotic changes of the aorta. Chronic lung crews ges are seen. Old right rib fractures noted. IMPRESSION: Borderline heart size with chronic lung change. POS: OFF
[2019-07-17 19:57] LABS: Troponin I 0.023 ng/mL (< 0.028)
[2019-07-17] MEDS ORDERED: Acetaminophen 325 MG TAB PO PRN (19:57)
[2019-07-17] MEDS ORDERED: Acetaminophen 650 MG Suppository PR PRN (19:57)
[2019-07-17] MEDS ORDERED: Ondansetron ODT 4 MG TAB PO PRN (19:57)
[2019-07-17] MEDS ORDERED: Ondansetron PF 4 MG/2 ML Vial IVP PRN (19:57)
[2019-07-17] MEDS ORDERED: Sodium Chloride 0.9% 1,000 ML IV SCH (20:00)
[2019-07-17 20:19] LABS: Lactic Acid 1.1 mmol/L (0.5-2.2)
--- NOTE | 2019-07-17 20:56 | CT ---
CT OF CHEST PERFORMED WITHOUT CONTRAST ENHANCEMENT: 07/17/19 HISTORY: Cough. There is linear scarring in the lung bases and minimal atelectatic change. There is a right middle lo be, somewhat oblong shaped pulmonary nodule measuring 10 mm in length. There is no confluent infiltra tive process. The thoracic aorta is tortuous. There are coronary calcifications. A large hiatal hernia is seen. The visualized liver parenchyma shows no focal findings. Right and left adrenal glands are normal. IMPRESSION: 1. Chronic lung change with old right sided rib fractures. 2. 10 mm right middle lobe pulmonary nodule for which follow-up evaluation would be recommended. Initial follow-up would be recommended as a three month CT. The other consideration would be PET sca n. 3. Coronary calcifications. 4. Large hiatal hernia. POS: JOELLE
[2019-07-17 21:24] VITALS: BMI 28.0
--- NOTE | 2019-07-17 21:26 | HP ---
TIME OF ASSESSMENT: 2000 hours. CHIEF COMPLAINT: Chest pain. HISTORY OF PRESENT ILLNESS: Ms. De Jesus is a pleasant 88-year-old woman, with a known history of Alzheimer's, who was brought from [facility] with complaints of chest pain. The patient recalls having chest pain, but is unable to provide any detailed information such as severity of pain or if it radiated anywhere or how long it lasted. She states she thinks it was in the center of her chest and thinks it may have radiated to her right arm and possibly her neck. She was given 324 mg of aspirin by the [facility] staff and EMS gave a dose of nitroglycerin sublingual while en route to hospital. In the emergency department, she had an EKG done showing normal sinus rhythm with PACs. She had a heart rate of 72. Nonspecific ST wave and T-wave abnormalities and prolonged QT noted. She has been referred for acute coronary syndrome rule out. No further treatment was given in the ER and she did have a chest x-ray done, which demonstrated a borderline heart size with chronic lung changes. Atherosclerotic changes of the aorta present. REVIEW OF SYSTEMS: The patient reports having a cough that has been productive of yellow sputum for the last 3 to 4 days. Denies having any fevers or chills. Denies any hemoptysis. At present, she denies having any chest pain. She does have an occasional cough during her assessment. Denies any lightheadedness or dizziness. No nausea or vomiting. No abdominal pain or cramping. Reports no changes with stools. Denies any urinary symptoms. PAST MEDICAL HISTORY: 1. GERD. 2. Osteoarthritis. 3. Glaucoma. 4. Hypertension. 5. Asthma. 6. Hyperlipidemia. 7. Chronic low back pain. 8. Dementia, Alzheimer's. 9. Anxiety. 10. Right femur fracture. PAST SURGICAL HISTORY: 1. Appendectomy. 2. Hysterectomy. 3. Mastectomy of the left breast. 4. Total right hip replacement. SOCIAL HISTORY: The patient denies any tobacco use or alcohol consumption. Denies illicit drug use. ALLERGIES: IODINE CONTRAST. CURRENT MEDICATIONS: 1. Acetaminophen. 2. Aspirin. 3. Atorvastatin. 4. Colace. 5. Pantoprazole. 6. Lumigan. 7. Nisoldipine. 8. Escitalopram. 9. Potassium chloride. 10. Melatonin. PHYSICAL EXAMINATION: GENERAL: The patient appears well developed, well nourished, is in no acute distress. She is resting comfortably. VITAL SIGNS: Temperature 98.9, pulse 62, respirations 16, O2 saturation 96% on room air, and blood pressure 125/51. HEENT: Normocephalic and atraumatic. Pupils are equal, round, and reactive to light. Sclerae without icterus. Oropharynx is notable for dry oral mucosa. NECK: Supple. LUNGS: Clear to auscultation bilaterally without wheezes, rales, or rhonchi. CARDIAC: Regular rate and rhythm without audible murmurs, rubs, or gallops. ABDOMEN: Soft, nontender, nondistended. Normoactive bowel sounds present. No guarding or rigidity. No renal angle tenderness. EXTREMITIES: No lower extremity edema. She has significant scaling and dry skin of both lower extremities. SKIN: Warm and dry. NEUROLOGIC: Alert and oriented x2, answering questions appropriately, but does admit to being forgetful with certain details. INVESTIGATIONS: As mentioned above in HPI. IMPRESSION AND PLAN: Ms. De Jesus is a very pleasant 88-year-old woman, who is being referred for management of the following. 1. Acute coronary syndrome rule out. The patient reportedly had chest pain and due to dementia is unable to recall when this happened or how long it lasted. She was unsure what she was doing when it started, but thinks she had central chest discomfort that may or may not have radiated to her neck and right shoulder. An initial troponin negative. We will continue to trend troponins. She will be on continuous cardiac monitoring. Lipid panel in the morning. We will continue daily aspirin. Chest x-ray notable for borderline cardiomegaly. We will add on BNP and magnesium as well as TSH. We will keep her n.p.o. at midnight and plan for stress dose in the morning. 2. Cough. The patient with cough productive of yellow sputum for the last few days. White count unremarkable. We will add lactic acid and procalcitonin. We will obtain CT chest to further assess for any underlying pneumonia. The patient is afebrile. We will hold on any antibiotics. 3. We will also obtain respiratory viral panel. 4. Hypertension. Monitor blood pressure and resume home medications once verified. 5. Hyperlipidemia. Resume home medications once verified. 6. Hyperkalemia. Replace and continue to monitor electrolytes. 7. Gastrointestinal prophylaxis. We will resume pantoprazole, which she takes regularly. 8. Deep venous thrombosis prophylaxis with mechanical SCDs. PT/OT consult. 9. Code status full. Surrogate decision maker is her grandson, Ziggy De Jesus. The patient's case was discussed with attending who agrees with plan of care as described above. Job ID: [id number]
[2019-07-17] MEDS ORDERED: Cepastat Lozenges 1 LOZ PO PRN (22:47)
[2019-07-17] MEDS ORDERED: Bisacodyl 10 MG SUPP PR PRN (22:47)
[2019-07-17 22:57] LABS: Troponin I 0.019 ng/mL (< 0.028)
[2019-07-18 04:42] LABS: #Eosinphils 0.4 thou/uL (0.0-0.7); #Lymphocytes 1.7 thou/uL (1.20-3.40); #Monocytes 0.6 thou/uL (0.11-0.59); #Neutrophils 4.3 thou/uL (1.40-6.50); %Basophils 0.2 % (0.0-1.0); %Eosinophils 5.1 % (0.0-10.0); %Lymphocytes 24.6 % (21.0-51.0); %Monocytes 8.8 % (0.0-10.0); %Neutrophils 61.3 % (42.0-75.0); Hemoglobin 12.1 g/dL (12.0-16.0); Mean Corpuscular HGB CONC 33.6 g/dL (32.0-36.0); Mean Corpuscular Hemoglobin 30.6 pg (27.0-31.0); Mean Corpuscular Volume 91.1 fL (78.0-98.0); Mean Platelet Volume 8.3 fL (7.4-10.4); Platelet Count 259 thou/uL (130-400); RBC Distribution Width 11.9 % (11.5-14.5); Red Blood Cell (RBC) Count 3.97 mill/uL (4.20-5.40)
[2019-07-18 05:05] LABS: Anion Gap 13 mmol/L (10-20); BUN (Urea Nitrogen) 30 mg/dL (9.8-20.1); Calc. Creatinine Clearance 65 mL/min (70-130); Calcium 9.6 mg/dL (7.8-10.44); Carbon Dioxide 26 mmol/L (23-31); Cardiac Risk 2.3 (Less than 4.5); Chloride 107 mmol/L (98-107); Cholesterol 106 mg/dl (< 200 Desired); Estimated GFR-MDRD 72; Glucose 106 mg/dL (83-110); HDL Cholesterol 46 mg/dL (>60 Neg Risk); LDL Cholesterol, Calculated 49 mg/dL; Potassium 3.5 mmol/L (3.5-5.1); Sodium 142 mmol/L (136-145); Triglycerides 55 mg/dL (Less than 150)
[2019-07-18] MEDS ORDERED: Aspirin Chewable 81 MG TAB PO SCH (09:00)
[2019-07-18] MEDS ORDERED: Escitalopram Oxalate 20 mg Tablet PO SCH (09:00)
[2019-07-18] MEDS ORDERED: Hydrochlorothiazide 25 MG TAB PO SCH (09:00)
[2019-07-18] MEDS ORDERED: Multivitamin W/ Minerals 1 TAB PO SCH (09:00)
[2019-07-18] MEDS ORDERED: Prevnar 13-Val Conj/PF 0.5 ML SYRINGE IM ONE (09:00)
[2019-07-18] MEDS ORDERED: Amlodipine 10 MG TAB PO SCH (09:00)
[2019-07-18] MEDS ORDERED: Regadenoson 0.4 MG/5 ML SYRINGE ONE (09:52)
--- NOTE | 2019-07-18 12:26 | NM ---
EXAM: CARDIAC SPECT HISTORY: Chest pain TECHNIQUE: A myocardial perfusion scan was performed using the single isotope 1 day protocol with chavez hnetium 99m sestamibi. [10 mCi] was injected intravenously for the rest exam followed by 30 mCi for the stress study. Pharmacologic stress with Lexiscan was monitored and interpreted by Dr. Cruz FINDINGS: Homogeneous tracer distribution is seen in the myocardial segments on stress and rest image s without fixed or reversible defects. Gated SPECT LVEF: 84% Wall motion exam: Normal IMPRESSION: Normal myocardial perfusion scan
[2019-07-18 14:55] VITALS: BP 153/69; TEMP 98.1
[2019-07-18] MEDS ORDERED: Melatonin 3 MG TAB PO SCH (21:00)
[2019-07-18] MEDS ORDERED: Latanoprost 0.005% Ophth Soln 2.5 ml Bottle EA EYE SCH (21:00)
[2019-07-18] MEDS ORDERED: Atorvastatin Calcium 40 MG TAB PO SCH (21:00)
--- NOTE | 2019-07-19 08:09 | DIS ---
DATE OF ADMISSION: 07/17/2019 DATE OF DISCHARGE: 07/18/2019 DISCHARGE DISPOSITION: Assisted Living Facility. FOLLOWUP: Follow up with primary care physician at [facility]. The patient was advised to discontinue NSAIDs. ALLERGIES: IODINE. DISCHARGE MEDICATIONS: All other home medications were left unchanged except for discontinuation of NSAIDs. The patient was seen and examined on the day of discharge. Denies any new complaints. No chest pain reported. BRIEF HOSPITAL COURSE: The patient is an 88-year-old female, who was brought in from [facility] with chest discomfort yesterday evening. Please refer to the history and physical by Rowena Grubbs for details. The patient was admitted to the telemetry unit with a diagnosis of chest discomfort, rule out acute coronary syndrome. Serial troponins were negative. She underwent Lexiscan pharmacological stress test, which was negative for reversible ischemia. There were no wall motion abnormalities. She is chest pain free at this time. The patient had hypokalemia with potassium 3.2 on admission that has been replaced. She will benefit from repeat electrolyte check after 1 week. The patient also was found to have abnormal TSH of 0.2933. Further workup as outpatient is recommended. Primary care physician advised to follow. FINAL DIAGNOSES: 1. Chest discomfort, acute coronary syndrome ruled out. 2. Negative Cardiolite stress test. 3. Chronic cough. There was no pneumonia on the chest CT or chest x-ray. 4. Hypertension. 5. Hyperlipidemia. 6. Hypokalemia, replaced. 7. Dementia. 8. Chronic kidney disease, stage 2. PLAN: Plan of care was discussed with the patient in detail. She stated understanding. Job ID: [id number]
== END 2019-07-18 15:50 ==
LOC: ERS 16:03 → 2NO 18:32
PROVIDERS: ADMIT Family Medicine; ATTEND Family Medicine
DX: R07.89 Other chest pain (principal); R05 Cough; I12.9 Hypertensive chronic kidney disease with stage 1 through stage 4 chronic kidney disease, or unspecified chronic kidney disease; N18.2 Chronic kidney disease, stage 2 (mild); E78.5 Hyperlipidemia, unspecified; E87.6 Hypokalemia; G30.9 Alzheimer's disease, unspecified; F02.80 Dementia in other diseases classified elsewhere, unspecified severity, without behavioral disturbance, psychotic disturbance, mood disturbance, and anxiety; K21.9 Gastro-esophageal reflux disease without esophagitis; M19.90 Unspecified osteoarthritis, unspecified site; J45.909 Unspecified asthma, uncomplicated; G89.29 Other chronic pain; M54.5 Low back pain; F41.9 Anxiety disorder, unspecified; I25.10 Atherosclerotic heart disease of native coronary artery without angina pectoris; K44.9 Diaphragmatic hernia without obstruction or gangrene; R91.1 Solitary pulmonary nodule; Z79.82 Long term (current) use of aspirin; Z79.899 Other long term (current) drug therapy; Z91.041 Radiographic dye allergy status
CPT/HCPCS: 71045; 71250; 78452; 80048; 80061; 83605; 83735; 83880; 84145; 84484 ×2; 85025; 90670; 93005; 93017; 96360; 96361 ×2; 97139 ×2; 99285; A9500; G0009; G0378 ×3; 36415; 80053; 84443; 90471; J2785

== ENCOUNTER 2020-07-22 21:40 | Emergency (ER) | payer MEDICARE, OTHER | END 2020-07-22 21:55 | disposition home or self-care (01) | LOC: ERS 21:40 | DX: R51.9 Headache, unspecified (principal); M54.2 Cervicalgia; W22.8XXA Striking against or struck by other objects, initial encounter; Z79.899 Other long term (current) drug therapy; Z79.82 Long term (current) use of aspirin; K21.9 Gastro-esophageal reflux disease without esophagitis; M19.90 Unspecified osteoarthritis, unspecified site; I10 Essential (primary) hypertension; E78.5 Hyperlipidemia, unspecified; J45.909 Unspecified asthma, uncomplicated; F03.90 Unspecified dementia, unspecified severity, without behavioral disturbance, psychotic disturbance, mood disturbance, and anxiety | CPT/HCPCS: 99284 ==

== ENCOUNTER 2021-02-27 | Emergency (ER) | payer MEDICARE, OTHER | END 2021-02-27 23:57 | disposition E ==